=== PATIENT | female | born 1985 | race Caucasian/White ===

== ENCOUNTER 2016-12-03 04:41 | Inpatient (IN) | payer BC ==
[~2016-12-03] VITALS: Ht 167.6 cm; Wt 84.5 kg
[2016-12-03] VITALS (91 sets, daily range): BP systolic 88–155; BP diastolic 56–92; PULSE 78–204; RESP 16–20; TEMP 98–98.5
[2016-12-03] MEDS ORDERED: LACTATED RINGER'S 1000 ML INJ 1,000 ML IV PRN (05:56)
[2016-12-03] MEDS ORDERED: LIDOCAINE HCL 1% 50 ML VIAL INFIL PRN (06:00)
[2016-12-03] MEDS ORDERED: OXYTOCIN 30 UNITS-500ML PREMIX 500 ML IV ONE (06:00)
[2016-12-03] MEDS ORDERED: LIDOCAINE HCL 1% 50 ML VIAL I-DERMAL PRN (06:00)
[2016-12-03] MEDS ORDERED: MINERAL OIL 10 ML VIAL TOPICAL PRN (06:00)
[2016-12-03] MEDS ORDERED: SODIUM CHLORID 0.9% 500 ML INJ 500 ML IV PRN (06:00)
--- NOTE | 2016-12-03 06:13 | HHI.HP ---
History & Physical H&P Patient Name: Jamila Blank Unit Number: [id number] Date of : 1985 Patient Status: Registered Emergency Room Attending Doctor: Luis Alberto Castaneda MD HPI HPI Chief Complaint Contractions Date Seen: Dec 03, 2016 Time Seen: 05:30 Travel History International Travel<30 Days: No Contact w/Intl Traveler<30Days: No Known Affected Area: No History of Present Illness HPI 31-year-old primigravida at 40 and 6 days gestation who comes tonight with irregular contraction activity. She had spontaneous rupture membranes while in the triage unit. Her cervix was found to be 1 cm 80% effaced -2 station vertex presentation with irregular contractions and a category 1 heart rate. Weeks Gestation: 40 History (Limited) History Past Medical History Medical History: Denies Significant Hx Obstetric History Obstetric History Primigravida under the care of Dr. Crawford. She reports no complications with this . Her record is not currently available. Past Surgical History Narrative Surgical [place] teeth Family History Family History: Negative Social History Alcohol Use: No Tobacco Use: No Substance Abuse: No Allergies-Medications Allergies-Medications ROS Review of Systems Except as stated in HPI: all other systems reviewed are Neg Physical Exam Physical Exam Narrative GENERAL: Well-nourished, well-developed patient. SKIN: Warm and dry. HEAD: Normocephalic and atraumatic. EYES: No scleral icterus. No injection or drainage. ENT: No nasal drainage noted. Mucous membranes pink. Airway patent. NECK: Supple, trachea midline. No JVD. CARDIOVASCULAR: Regular rate and rhythm without murmurs, gallops, or rubs. RESPIRATORY: Breath sounds equal bilaterally. No accessory muscle use. ABDOMEN/GI: Abdomen soft, non-tender, bowel sounds present, no rebound, no guarding Gravid to [-] weeks size Fundal Height: [-] GENITOURINARY: External Genitalia: intact and normal in appearance BUS glands: [Negative-] Cervix: [-] Dilatation: [1-] Effacement: [-80] Station: [--2] Presentation: [Vertex-] Membranes: [ruptured] Uterine Contractions: [-Irregular] FHT's: Category: [-1] Baseline: [-] Reactive: [Yes-] Variability: [-] Decels: [-] EXTREMITIES: No cyanosis or edema. BACK: Nontender without obvious deformity. No CVA tenderness. NEUROLOGICAL: Awake and alert. Motor and sensory grossly within normal limits. Five out of 5 muscle strength in all muscle groups. Normal speech. Data Data Data Vital Signs Reviewed: Yes Group B Strep: Negative MDM MDM Medical Record Reviewed: Yes Narrative Course / MDM Assessment: Primigravida at 40 weeks 6 days gestation with spontaneous rupture of membranes and early evidence of contractions. Plan: Admit for labor management. Luis Alberto Castaneda MD Dec 03, 2016 06:11 Luis Alberto Castaneda MD Dec 03, 2016 06:13
[2016-12-03] MEDS ORDERED: SODIUM CHLOR 0.9% 1000 ML INJ 1,000 ML IV PRN (06:16)
[2016-12-03 06:39] LABS: BACTERIA, URINE RARE /hpf; BLOOD, URINE LARGE (NEG); CALCIUM OXALATE CRYSTALS,URINE OCC /hpf; COMMENT (UR) CULT NOT INDICATED; CULTURE IF INDICATED CULT NOT INDICATED; GLUCOSE,URINE NEG (NEG); HYALINE CAST, URINE 1 /lpf (RARE); KETONE, URINE TRACE mg/dL (NEG); MUCUS URINE FEW /lpf (OCC); NITRITE,URINE NEG (NEG); SQUAMOUS EPITHELIAL CELL URINE 8 /hpf (0-5); URINE COLOR YELLOW (YELLW/STRAW)
[2016-12-03 07:14] LABS: AUTOMATED NEUTROPHIL # 12.5 TH/MM3 (1.8-7.7); BASOPHIL % 0.3 % (0.0-2.0); EOSINOPHIL # 0.1 TH/MM3 (0-0.4); EOSINOPHIL % 0.4 % (0.0-4.0); HEMATOCRIT 36.2 % (35.0-46.0); LYMPH % 13.3 % (9.0-44.0); LYMPHOCYTE # 2.1 TH/MM3 (1.0-4.8); MEAN CELL VOLUME 88.2 FL (80.0-100.0); MEAN CORPUSCULAR HEMOGLOBIN 29.2 PG (27.0-34.0); MEAN CORPUSCULAR HGB CONC 33.1 % (32.0-36.0); MONO % 7.5 % (0.0-8.0); NEUT % 78.5 % (16.0-70.0); PLATELET COUNT 197 TH/MM3 (150-450); RED BLOOD COUNT 4.11 MIL/MM3 (4.00-5.30); WHITE BLOOD COUNT 15.9 TH/MM3 (4.0-11.0)
[2016-12-03 07:16] LABS: HEMO FLAGS AUTO DIFF
[2016-12-03 08:01] LABS: BANDS 3 % (0-6); CORRECTED NUCLEATED RBC 1 /100 WBC (0-0); EOSINOPHILS 2 % (0-4); METAMYELOCYTES 1 % (0-1); NEUTROPHIL # MANUAL DIFF 12.2 TH/MM3 (1.8-7.7); PLATELET ESTIMATE SMEAR NORMAL (NORMAL); PLATELET MORPHOLOGY NORMAL (NORMAL); POLYS (SEG NEUTROPHILS) 73 % (16-70); SCAN/DIFF FINAL DIFF MANUAL; WBC DIFF SAMPLE 100
--- NOTE | 2016-12-03 11:30 | PD.LABORPN ---
Subjective Subjective Quite miserable but using birthing ball effectively Objective Vital Signs Vital Signs Date Time Temp Pulse Resp B/P (MAP) Pulse Ox O2 Delivery O2 Flow Rate FiO2 12/03/16 09:37 78 113/64 (80) 12/03/16 09:35 98.3 18 12/03/16 07:30 98.2 20 12/03/16 07:18 92 132/89 (103) Objective 5-6/100%/-2 EFW 7 1/2 pounds pelvis clinically adequate Weeks Gestation: 40 Gest Age Assessed Date: Dec 03, 2016 Gest Age Assessed Time: 11:30 Pt started active labor?: Yes Active labor start date: Dec 03, 2016 Active labor start time: 05:30 Medical induction of labor?: No Artificial rupture of membrane: No Assessment/Plan Assessment and Plan anticipate can have epidural if desires making good change despite tocometer Brynn Crawford MD Dec 03, 2016 11:30
[2016-12-03] MEDS: LACTATED RINGER'S 1000 ML INJ 1,000 ML IV SCH ×3 (12:12→18:42)
[2016-12-03] MEDS ORDERED: fentaNYL 2MCG-BUPIV 0.125% INJ 100 ML ONE (12:22)
[2016-12-03] MEDS ORDERED: ePHEDrine/NS 25 MG/5 ML SYR ONE (13:23)
[2016-12-03] MEDS ORDERED: NO SYSTEM NARCOTICS PRN (14:45)
[2016-12-03] MEDS ORDERED: DO NOT ADMINISTER ANTICOAGULANTS PRN (14:45)
[2016-12-03] MEDS ORDERED: ePHEDrine/NS 25 MG/5 ML SYR IV PRN (14:45)
[2016-12-03] MEDS ORDERED: fentaNYL 2MCG-BUPIV 0.125% 100 ML EPIDURAL SCH (14:45)
[2016-12-03] MEDS ORDERED: DIPHTH/TETANUS/ACEL PERTUSSIS (BOOSTER) 0.5 ML VIAL/PFS IM ONE (16:00)
[2016-12-03] MEDS ORDERED: MEASLES, MUMPS, RUBELLA VACCINE 0.5 ML VIAL SQ ONE (16:00)
--- NOTE | 2016-12-03 17:35 | PD.LABORPN ---
Subjective Subjective comfortable not feeling infrequent contractions Objective Vital Signs Vital Signs Date Time Temp Pulse Resp B/P (MAP) Pulse Ox O2 Delivery O2 Flow Rate FiO2 12/03/16 16:27 18 12/03/16 16:25 110 12/03/16 16:20 117 12/03/16 16:15 110 12/03/16 16:15 106 124/72 (89) 12/03/16 16:10 103 12/03/16 16:05 112 12/03/16 16:00 114 12/03/16 16:00 119 122/69 (86) 12/03/16 15:55 105 12/03/16 15:50 109 12/03/16 15:45 118 114/73 (87) 12/03/16 15:45 123 12/03/16 15:39 98.5 12/03/16 15:39 18 12/03/16 15:35 113 12/03/16 15:30 98 12/03/16 15:30 95 103/61 (75) 12/03/16 15:25 104 12/03/16 15:20 97 12/03/16 15:15 93 12/03/16 15:15 94 98/58 (71) 12/03/16 15:10 107 12/03/16 15:05 105 12/03/16 15:00 103 99/56 (70) 12/03/16 15:00 100 12/03/16 14:54 17 12/03/16 14:50 98 12/03/16 14:45 105 105/66 (79) 12/03/16 14:45 104 12/03/16 14:40 98 12/03/16 14:35 107 12/03/16 14:30 102 107/70 (82) 12/03/16 14:30 95 12/03/16 14:22 17 12/03/16 14:20 98 115/72 (86) 12/03/16 14:20 94 12/03/16 14:15 94 12/03/16 14:15 104 114/64 (81) 12/03/16 14:10 108 12/03/16 14:10 106 118/67 (84) 12/03/16 14:05 105 111/74 (86) 12/03/16 14:05 103 12/03/16 14:01 125/73 (90) 12/03/16 14:00 99 12/03/16 13:55 107 12/03/16 13:55 120 110/65 (80) 12/03/16 13:50 103 117/70 (86) 12/03/16 13:50 109 12/03/16 13:45 108 107/69 (82) 12/03/16 13:45 107 12/03/16 13:40 104 12/03/16 13:40 103 110/60 (77) 12/03/16 13:39 99 18 113/63 (80) 12/03/16 13:35 106 98/80 (86) 12/03/16 13:35 105 12/03/16 13:31 106 110/62 (78) 12/03/16 13:30 102 12/03/16 13:30 96 107/71 (83) 12/03/16 13:29 97 88/63 (71) 12/03/16 13:25 106 12/03/16 13:25 101 111/58 (75) 12/03/16 13:22 100 113/62 (79) 12/03/16 13:20 115 104/58 (73) 12/03/16 13:20 116 12/03/16 13:15 107 12/03/16 13:15 107 116/64 (81) 12/03/16 13:10 89 12/03/16 13:10 94 117/64 (81) 12/03/16 13:07 95 127/74 (91) 12/03/16 13:05 91 12/03/16 13:05 88 143/86 (105) 12/03/16 13:03 81 155/88 (110) 12/03/16 11:50 19 12/03/16 11:50 89 111/84 (93) 12/03/16 11:50 89 111/84 (93) 12/03/16 11:49 98.2 12/03/16 11:29 98.2 85 18 136/92 (107) 12/03/16 09:37 78 113/64 (80) 12/03/16 09:35 98.3 18 Objective complete/110%/0 strip category 1 Weeks Gestation: 40 Gest Age Assessed Date: Dec 03, 2016 Gest Age Assessed Time: 17:34 Pt started active labor?: Yes Active labor start date: Dec 03, 2016 Active labor start time: 05:30 Medical induction of labor?: No Artificial rupture of membrane: No Assessment/Plan Assessment and Plan wants to avoid pitocin will stop epidural anticipate Brynn Salazar MD Dec 03, 2016 17:35
[2016-12-03] MEDS ORDERED: OXYTOCIN 30 UNITS-500ML PREMIX 500 ML ONE (21:20)
[2016-12-03] MEDS ORDERED: CARBOPROST TROMETHAMINE 250 MCG/ML VIAL ONE (21:21)
[2016-12-03] MEDS ORDERED: LIDOCAINE 2% JELLY 30 ML TUBE ONE (21:43)
[2016-12-03] MEDS ORDERED: ACETAMINOPHEN 325 MG TAB PO PRN (22:00)
[2016-12-03] MEDS ORDERED: DISCONTINUE ALL PREVIOUS ORDERS ONE (22:00)
[2016-12-03] MEDS ORDERED: OXYTOCIN 30 UNITS-500ML PREMIX 500 ML IV SCH (22:00)
[2016-12-03] MEDS ORDERED: DOCUSATE SODIUM 50 MG/SENNA 8.6 MG TAB PO PRN (22:00)
[2016-12-03] MEDS ORDERED: ZOLPIDEM TARTRATE 5 MG TAB PO PRN (22:00)
[2016-12-03] MEDS ORDERED: oxyCODONE/ACETAMINOPHEN 5 MG/325 MG TAB PO PRN (22:00)
[2016-12-03] MEDS ORDERED: ONDANSETRON ODT 4 MG TAB PO PRN (22:00)
[2016-12-03] MEDS ORDERED: WITCH HAZEL 50%/GLYCERIN 12.5% 40 PAD JAR TOPICAL PRN (22:00)
[2016-12-03] MEDS ORDERED: BENZOCAINE 20% TOPICAL SPRAY 60 ML CAN TOPICAL PRN (22:00)
[2016-12-03] MEDS ORDERED: ALUMINUM/MAGNESIUM/SIMETH 30 ML CUP PO PRN (22:00)
[2016-12-03] MEDS ORDERED: oxyCODONE/ACETAMINOPHEN 5 MG/325 MG 2 TABS PO PRN (22:00)
[2016-12-03] MEDS ORDERED: CARBOPROST TROMETHAMINE 250 MCG/ML VIAL IM ONE (22:30)
[2016-12-03] MEDS ORDERED: LIDOCAINE 2% JELLY 30 ML TUBE TOPICAL ONE (22:30)
[2016-12-04] MEDS: METHYLERGONOVINE MALEATE 0.2 MG TAB PO PRN ×2 (01:26→05:53)
[2016-12-04 05:54] LABS: AUTOMATED NEUTROPHIL # 17.3 TH/MM3 (1.8-7.7); BASOPHIL # 0.1 TH/MM3 (0-0.2); BASOPHIL % 0.4 % (0.0-2.0); EOSINOPHIL % 0.1 % (0.0-4.0); HEMATOCRIT 29.4 % (35.0-46.0); HEMO FLAGS DIFF FINAL; LYMPHOCYTE # 1.7 TH/MM3 (1.0-4.8); MEAN CELL VOLUME 88.2 FL (80.0-100.0); MEAN CORPUSCULAR HGB CONC 32.9 % (32.0-36.0); MONO % 9.8 % (0.0-8.0); NEUT % 81.7 % (16.0-70.0); PLATELET COUNT 186 TH/MM3 (150-450); RED BLOOD COUNT 3.33 MIL/MM3 (4.00-5.30); RED CELL DISTRIBUTION WIDTH 14.2 % (11.6-17.2); WHITE BLOOD COUNT 21.2 TH/MM3 (4.0-11.0)
--- NOTE | 2016-12-04 07:53 | PD.OB.DELI ---
Weeks gestation: 40 Gest age assessed date: Dec 03, 2016 Gest age assessed time: 17:34 Pt started active labor?: Yes Active labor start date: Dec 03, 2016 Active labor start time: 05:30 Medical induction of labor?: No Artificial rupture of membrane: No Anesthesia: Epidural Episiotomy: None Vaginal Delivery: Normal Presentation: Occiput anterior Nuchal Cord: None Delayed cord clamping (45 sec): Yes : Male Delivery date: Dec 03, 2016 Delivery time: 21:30 One Minute : 8 Five Minute : 9 Weight: 7 Placenta: Spontaneous delivery Laceration: 1 deg Repair: Chromic running Estimated blood loss: average initially, declined pitocin and then required it for moderate PPH Brynn Crawford MD Dec 04, 2016 07:53
--- NOTE | 2016-12-04 08:52 | HHI.OB ---
Subjective Post Day: 1 Objective Vitals/I&O Vital Signs Date Time Temp Pulse Resp B/P (MAP) Pulse Ox O2 Delivery O2 Flow Rate FiO2 12/03/16 22:35 108 20 140/88 (105) 12/03/16 22:35 98.0 12/03/16 22:15 111 136/84 (101) 12/03/16 22:00 107 150/84 (106) 12/03/16 21:53 108 155/92 (113) 12/03/16 21:45 115 145/85 (105) 12/03/16 21:39 18 12/03/16 21:30 121 145/91 (109) 12/03/16 21:15 18 12/03/16 21:00 112 129/79 (96) 12/03/16 20:45 204 143/63 (89) 12/03/16 20:35 18 12/03/16 20:30 118 134/88 (103) 12/03/16 20:18 18 12/03/16 20:15 127 132/80 (97) 12/03/16 20:10 18 12/03/16 20:00 159 135/75 (95) 12/03/16 19:48 117/65 (82) 12/03/16 19:48 16 12/03/16 19:45 130 12/03/16 19:39 16 12/03/16 19:36 171 114/82 (93) 12/03/16 18:37 19 12/03/16 18:30 119 135/72 (93) 12/03/16 18:00 126 125/74 (91) 12/03/16 17:40 116 12/03/16 17:35 116 12/03/16 17:30 126 103/70 (81) 12/03/16 17:30 126 12/03/16 17:25 127 12/03/16 17:20 122 12/03/16 17:15 123 12/03/16 17:10 116 12/03/16 17:05 125 12/03/16 17:00 17 12/03/16 17:00 110 95/61 (72) 12/03/16 17:00 115 12/03/16 16:55 109 12/03/16 16:50 111 12/03/16 16:45 106 12/03/16 16:27 18 8/28/17 16:25 110 12/03/16 16:20 117 12/03/16 16:15 110 12/03/16 16:15 106 124/72 (89) 12/03/16 16:10 103 12/03/16 16:05 112 12/03/16 16:00 114 12/03/16 16:00 119 122/69 (86) 12/03/16 15:55 105 12/03/16 15:50 109 12/03/16 15:45 118 114/73 (87) 12/03/16 15:45 123 12/03/16 15:39 98.5 12/03/16 15:39 18 12/03/16 15:35 113 12/03/16 15:30 98 12/03/16 15:30 95 103/61 (75) 12/03/16 15:25 104 12/03/16 15:20 97 12/03/16 15:15 93 12/03/16 15:15 94 98/58 (71) 12/03/16 15:10 107 12/03/16 15:05 105 12/03/16 15:00 103 99/56 (70) 12/03/16 15:00 100 12/03/16 14:54 17 12/03/16 14:50 98 12/03/16 14:45 105 105/66 (79) 12/03/16 14:45 104 12/03/16 14:40 98 12/03/16 14:35 107 12/03/16 14:30 102 107/70 (82) 12/03/16 14:30 95 12/03/16 14:22 17 12/03/16 14:20 98 115/72 (86) 12/03/16 14:20 94 12/03/16 14:15 94 12/03/16 14:15 104 114/64 (81) 12/03/16 14:10 108 12/03/16 14:10 106 118/67 (84) 12/03/16 14:05 105 111/74 (86) 12/03/16 14:05 103 12/03/16 14:01 125/73 (90) 12/03/16 14:00 99 12/03/16 13:55 107 12/03/16 13:55 120 110/65 (80) 12/03/16 13:50 103 117/70 (86) 12/03/16 13:50 109 12/03/16 13:45 108 107/69 (82) 12/03/16 13:45 107 12/03/16 13:40 104 12/03/16 13:40 103 110/60 (77) 12/03/16 13:39 99 18 113/63 (80) 12/03/16 13:35 106 98/80 (86) 12/03/16 13:35 105 12/03/16 13:31 106 110/62 (78) 12/03/16 13:30 102 12/03/16 13:30 96 107/71 (83) 12/03/16 13:29 97 88/63 (71) 12/03/16 13:25 106 12/03/16 13:25 101 111/58 (75) 12/03/16 13:22 100 113/62 (79) 12/03/16 13:20 115 104/58 (73) 12/03/16 13:20 116 12/03/16 13:15 107 12/03/16 13:15 107 116/64 (81) 12/03/16 13:10 89 12/03/16 13:10 94 117/64 (81) 12/03/16 13:07 95 127/74 (91) 12/03/16 13:05 91 12/03/16 13:05 88 143/86 (105) 12/03/16 13:03 81 155/88 (110) 12/03/16 11:50 19 12/03/16 11:50 89 111/84 (93) 12/03/16 11:50 89 111/84 (93) 12/03/16 11:49 98.2 12/03/16 11:29 98.2 85 18 136/92 (107) 12/03/16 09:37 78 113/64 (80) 12/03/16 09:35 98.3 18 Other Results significant PPH after unremarkable requiring pitocin, hemobate anthony in place and clear nursing well will hold off on circ until tomorrow Objective Remarks GENERAL: Well-nourished, well-developed patient. CARDIOVASCULAR: Regular rate and rhythm without murmurs, gallops, or rubs. RESPIRATORY: Breath sounds equal bilaterally. No accessory muscle use. ABDOMEN/GI: Abdomen soft, non-tender. Fundus: Firm, non-tender at umbilicus. GENITOURINARY: Light to moderate bleeding. EXTREMITIES: No cyanosis or edema, non-tender, without signs of DVT. Medications and IVs Current Medications Medications (Trade) Dose Ordered Sig/Anand Route Start Time Stop Time Status Last Admin Miscellaneous Information No systemic narcotics to be given except... UNSCH PRN .XX 12/03/16 14:45 12/04/16 14:44 Miscellaneous Information DO NOT ADMINISTER ANY ANTICOAGUL... UNSCH PRN .XX 12/03/16 14:45 12/04/16 14:44 (Tylenol) 650 mg Q4H PRN PO 12/03/16 22:00 (Motrin) 600 mg Q6H PRN PO 12/03/16 22:00 (Percocet 5-325 Mg) 1 tab Q4H PRN PO 12/03/16 22:00 (Percocet 5-325 Mg) 2 tab Q4H PRN PO 12/03/16 22:00 (Americaine 20% Top Spr) 1 spray Q4H PRN TOPICAL 12/03/16 22:00 12/04/16 01:26 (Tucks Pads) 1 applic Q6H PRN TOPICAL 12/03/16 22:00 12/04/16 01:26 (Magalie-Colace) 2 tab Q12H PRN PO 12/03/16 22:00 (Ambien) 5 mg HS PRN PO 12/03/16 22:00 (Mag-Al Plus Susp Liq) 15 ml Q8H PRN PO 12/03/16 22:00 (Zofran Odt) 4 mg Q6H PRN PO 12/03/16 22:00 (Methergine) 0.2 mg Q4H PRN PO 12/03/16 22:00 12/04/16 05:53 Assessment/Plan Attending Attestation will give venofir iron then dc hep lock anticipate circ and discharge on Saturday Brynn Crawford MD Dec 04, 2016 08:52
[2016-12-04 08:55] VITALS: BP 116/75; PULSE 80; RESP 16; TEMP 98.8
[2016-12-04] MEDS ORDERED: IRON SUCROSE 100 MG/5 ML VIAL IV PUSH ONE (09:00)
[2016-12-04] MEDS: IBUPROFEN 600 MG TAB PO PRN ×2 (09:47→20:15)
[2016-12-04 14:48] VITALS: BP 104/69; PULSE 100; RESP 18; TEMP 98.7
[2016-12-04 20:15] VITALS: BP 129/67; PULSE 105; RESP 18; TEMP 99
[2016-12-05] MEDS: IBUPROFEN 600 MG TAB PO PRN (07:24)
[2016-12-05 07:25] VITALS: BP 117/76; PULSE 106; RESP 18; TEMP 98.2
--- NOTE | 2016-12-05 08:13 | HHI.OB ---
Subjective Post Day: 2 Remarks doing well with nursing no complaints Objective Vitals/I&O Vital Signs Date Time Temp Pulse Resp B/P (MAP) Pulse Ox O2 Delivery O2 Flow Rate FiO2 12/04/16 20:15 99.0 105 18 129/67 (87) 12/04/16 14:48 100 104/69 (81) 12/04/16 14:48 98.7 18 12/04/16 08:55 98.8 80 16 116/75 (89) Other Results significant PPH after unremarkable requiring pitocin, hemobate nursing well Objective Remarks GENERAL: Well-nourished, well-developed patient. CARDIOVASCULAR: Regular rate and rhythm without murmurs, gallops, or rubs. RESPIRATORY: Breath sounds equal bilaterally. No accessory muscle use. ABDOMEN/GI: Abdomen soft, non-tender. Fundus: Firm, non-tender at umbilicus. GENITOURINARY: Light to moderate bleeding. EXTREMITIES: No cyanosis or edema, non-tender, without signs of DVT. Medications and IVs Current Medications Medications (Trade) Dose Ordered Sig/Anand Route Start Time Stop Time Status Last Admin (Tylenol) 650 mg Q4H PRN PO 12/03/16 22:00 (Motrin) 600 mg Q6H PRN PO 12/03/16 22:00 12/05/16 07:24 (Percocet 5-325 Mg) 1 tab Q4H PRN PO 12/03/16 22:00 (Percocet 5-325 Mg) 2 tab Q4H PRN PO 12/03/16 22:00 (Americaine 20% Top Spr) 1 spray Q4H PRN TOPICAL 12/03/16 22:00 12/04/16 01:26 (Tucks Pads) 1 applic Q6H PRN TOPICAL 12/03/16 22:00 12/04/16 01:26 (Magalie-Colace) 2 tab Q12H PRN PO 12/03/16 22:00 12/04/16 20:15 (Ambien) 5 mg HS PRN PO 12/03/16 22:00 (Mag-Al Plus Susp Liq) 15 ml Q8H PRN PO 12/03/16 22:00 (Zofran Odt) 4 mg Q6H PRN PO 12/03/16 22:00 (Methergine) 0.2 mg Q4H PRN PO 12/03/16 22:00 12/04/16 05:53 Assessment/Plan Assessment and Plan baby circumcised and mom and baby ready for discharge mom received venifer yesterday Brynn Crawford MD Dec 05, 2016 08:13
[2016-12-05] MEDS ORDERED: IBUP-232 PO (08:14)
--- NOTE | 2016-12-05 08:15 | HHI.DCPOC ---
Discharge Care Plan Report Symptoms to Your Doctor -Temperature above 100.5 degrees -Redness, of incision or excessive or foul smelling drainage -Unusual pain or calf pain -Increased vaginal bleeding -Painful or difficulty urinating -Feelings of extreme sadness or anxiety after 2 weeks Goals to Promote Your Health * To prevent worsening of your condition and complications * To maintain your health at the optimal level Directions to Meet Your Goals Take your medications as prescribed Follow your dietary instruction Follow activity as directed Ensure plenty of rest for recovery Drink fluids for hydration Keep your appointments as scheduled Take your immunizations and boosters as scheduled If your symptoms worsen call your PCP, if no PCP go to Urgent Care Center or Emergency Room Smoking is Dangerous to Your Health. Avoid second hand smoke Call the 24-hour crisis hotline for domestic abuse at Brynn Crawford MD Dec 05, 2016 08:15
--- NOTE | 2016-12-05 08:16 | PD.CIRC ---
Circumcision Procedure Note Procedure Date: Dec 05, 2016 Procedure Time: 08:16 Procedure: Circumcision Pre-procedure diagnosis: circumcision Post-procedure diagnosis: circumcision Informed Consent: The risks, benefits, indications, potential complications, and alternatives were explained to the patient/family and informed consent obtained. The baby was brought to the procedure room where a time-out was done to ID the patient and the procedure. Performing Physician: Brynn Crawford Anesthesia used: 1% lidocaine injected Type of block: ring block Device used: Gomco 1.3 Description: The baby was prepped and draped in a sterile fashion. The procedure followed standard technique. The baby tolerated the procedure well without complication. Findings: normal exam Estimated blood loss: 0 Specimen: Brynn Valera MD Dec 05, 2016 08:16
[2016-12-05] MEDS ORDERED: AMMONIA AROMATIC INHALANT 0.33 ML ONE (09:42)
== END 2016-12-05 11:47 | disposition home or self-care (01) | DRG 774 ==
LOC: HOBED 04:41 → H2EA 06:06 → H1EA 22:19
PROVIDERS: ADMIT Obstetrics & Gynecology; ATTEND Obstetrics & Gynecology
PROC: 10E0XZZ Delivery of Products of Conception, External Approach (ICD-10-PCS; principal; 2016-12-03)
PROC: 0HQ9XZZ Repair Perineum Skin, External Approach (ICD-10-PCS; 2016-12-03)
PROC: 3E0S3CZ (ICD-10-PCS; 2016-12-03)
PROC: 00HU33Z Insertion of Infusion Device into Spinal Canal, Percutaneous Approach (ICD-10-PCS; 2016-12-03)
DX: O70.0 First degree perineal laceration during delivery (principal); O72.1 Other immediate postpartum hemorrhage; Z37.0 Single live birth; Z3A.40 40 weeks gestation of pregnancy
CPT/HCPCS: 59025; 81001; 84112; 85007; 85025; 85027; 86900; 86901; J1756; J2590; J7120